=== PATIENT | male | born 1965 | race Caucasian/White ===

== ENCOUNTER 2019-10-06 10:49 | Emergency (ER) | payer OTHER, SELFPAY ==
--- NOTE | 2019-10-06 10:57 | ED.UPPEXIN ---
HPI - Extremity Injury (Upper) General Chief Complaint: Extremity Injury, Upper Stated Complaint: numbness in hands Time Seen by Provider: 10/06/19 10:58 Source: patient and RN notes reviewed History of Present Illness HPI narrative: Patient is a 54-year-old male who presents the urgent care with complaints of bilateral hand numbness and tingling. Patient states that it is been ongoing since he was arrested and placed in tight handcuffs. States that the right hand is worse than the left. Patient was arrested by at [employer]. Patient states the incident occurred yesterday morning and he had the pain For Approximately 2 Hours. Patient Denies Any Other Injury or Trauma to the Upper Extremities. No Other Acute Complaints. No Acute Distress Noted. Patient Read the Plan of Care. Related Data Home Medications Medication Instructions Recorded Confirmed No Home Medications 10/06/19 10/06/19 Allergies Allergy/AdvReac Type Severity Reaction Status Date / Time No Known Allergies Allergy Verified 10/06/19 11:05 Review of Systems Review of Systems: Narrative: CONSTITUTIONAL: Denies fever, chills, or sweats. EYES: Denies visual changes, redness, or discharge. ENT: Denies rhinorrhea, congestion, sore throat, or otalgia. CARDIOVASCULAR: Denies chest pain, palpitations, or edema. RESPIRATORY: Denies cough or dyspnea. GASTROINTESTINAL: Denies abdominal pain, nausea, vomiting, or diarrhea. GENITOURINARY: Denies dysuria or hematuria. SKIN: Denies rash or itching. MUSCULOSKELETAL: Denies back pain, joint pain, or myalgia. NEUROLOGIC: Reports of numbness to bilateral upper extremities, worse on the right All other systems reviewed are negative, except as documented in HPI. PMFSH Comments At the time of my signature, I reviewed and agree with the nursing past medical, surgical, social, and family history. There is no relevant family history pertinent to the patient complaint. Exam Narrative: Exam Narrative: GENERAL: This is a well-nourished, well-developed patient, in no apparent distress. HEAD: normocephalic, atraumatic. EYES: PERRL. Sclera clear/white. Vision is grossly intact. EARS: External ears normal NOSE: External nose normal with no obvious nasal discharge, nares without redness, no rhinorrhea. THROAT: Mucous membranes moist NECK: Neck supple CARDIOVASCULAR: Regular rate and rhythm without murmurs, gallops, or rubs. RESPIRATORY: Clear to auscultation. Breath sounds equal bilaterally. No wheezes, rales, or rhonchi. SKIN: warm, intact with no suspicious lesions or rash, good texture and turgor. NEURO: awake, alert, and oriented to person, place and time. There were no obvious focal neurologic abnormalities. 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 EXTREMITIES: No clubbing, cyanosis, or edema noted to bilateral upper extremities. Positive strong bilateral radial pulses with capillary refill less than 2 seconds. Course Vital Signs Vital signs: Vital Signs Temperature 98.3 F 10/06/19 10:58 Pulse Rate 74 10/06/19 10:58 Respiratory Rate 20 10/06/19 10:58 Blood Pressure 177/108 H 10/06/19 10:58 Pulse Oximetry 98 10/06/19 10:58 Temperature 98.3 F 10/06/19 10:58 Pulse Rate 74 10/06/19 10:58 Respiratory Rate 20 10/06/19 10:58 Blood Pressure 177/108 H 10/06/19 10:58 Pulse Oximetry 98 10/06/19 10:58 Reviewed-patient is informed that they may have pre-hypertension or hypertension based on a blood pressure reading in the department. I recommend the patient call the primary care provider listed on their discharge instructions or a physician of their choice this week to arrange follow-up for further evaluation of possible pre-hypertension or hypertension. Patient does not take any medication for his hypertension but is aware he needs to discuss his high blood pressure with a primary care doctor [facility]. MDM - Extremity Injury (Upper) MDM Narrative Medical decision making narrative:
[2019-10-06 10:58] VITALS: BP 177/108; PULSE 74; RESP 20; TEMP 36.8; O2SAT 98
== END 2019-10-06 11:15 | disposition home or self-care (01) ==
PROVIDERS: Emergency Provider Nurse Practitioner Family
DX: G58.9 Mononeuropathy, unspecified (principal)
CPT/HCPCS: 99211; G0463